=== PATIENT | female | born 1965 ===

== ENCOUNTER 2018-01-06 08:06 | Day surgery (SDC) | payer OTHER ==
[2017-12-30 13:08] VITALS: BMI 35.1
[~2018-01-06 08:06] MED LIST: Clindamycin 600mg/50ml NS 600 MG/50 ML BAG IVPB ONE; EPINEPHrine 1:1000 Nasal Sol(30mL) ONE; Lidocaine/Epinephrine 1% 1:100000 10 ML IJ ONE
[2018-01-06] MEDS ORDERED: Acetaminophen-Codeine 300/30 mg Tab PO PRN (08:14)
[2018-01-06] MEDS ORDERED: Dextrose 5%/0.45% NS 1,000 ML IV SCH (08:15)
[2018-01-06] MEDS ORDERED: Midazolam 2 MG/2 ML VIAL ONE (12:00)
[2018-01-06] MEDS ORDERED: Propofol 10 mg/ml Inj (20 ML) ONE (12:01)
[2018-01-06] MEDS: HYDROmorphone 0.5 mg/0.5 ml ISec IVP PRN ×3 (12:53→13:23)
[2018-01-06 13:55] VITALS: PULSE 69; RESP 13
[2018-01-06 14:27] VITALS: BP 176/88; TEMP 98; O2SAT 98
--- NOTE | 2018-01-06 23:14 | OP ---
PROCEDURE DATE: 01/06/2018 PREOPERATIVE DIAGNOSIS: Deviated septum, large inferior turbinates. POSTOPERATIVE DIAGNOSIS: Deviated septum, large inferior turbinates. PROCEDURE: Septoplasty, bilateral inferior turbinate reduction. SIGNIFICANT FINDINGS: Deviated septum, large turbinates. DESCRIPTION OF PROCEDURE: The patient was brought into the room and placed in supine position. Anesthesia was initiated through an ET tube. The patient was draped in the usual manner. Adrenaline-soaked pledgets were then inserted into the nasal cavity, remained there for 5 minutes and removed. The septum was injected with lidocaine with epinephrine on both sides. A Hoople incision was made on the left septum after it was infused with lidocaine with epinephrine on both sides. A mucoperichondrial flap was raised. A vertical incision was made in the cartilage leaving a 1.5 cm anterior and superior strut and mucoperichondrial flap was raised on the other side. Deviated portion of the bone and cartilage were removed using forceps and chisel. Quilting suture was used to suture the two flaps together and close the Hoople incision. A 0-degree scope was inserted into the nasal cavity. The inferior turbinates were noted to be enlarged, they were reduced in size going from an inferior to superior, anterior to posterior direction on both sides, first on the left and then on the right. Bleeding was controlled using suction cautery on both sides. Stents were placed. The patient was taken off anesthesia and taken to the recovery room in stable manner. José Luis Dillon MD
== END 2018-01-06 17:56 | disposition home or self-care (01) ==
LOC: C.SDS 08:06
PROVIDERS: ATTEND Otolaryngology
DX: J34.2 Deviated nasal septum (principal); J34.3 Hypertrophy of nasal turbinates
CPT/HCPCS: 30140; 30520; 88304; J1170; J2250; J2704; J3010; J7030; J7040